=== PATIENT | female | born 1995 | race Caucasian/White ===

== ENCOUNTER 2018-04-09 18:08 | Inpatient (IN) | payer SELFPAY ==
[~2018-04-09] VITALS: Ht 157.5 cm; Wt 63.0 kg
[2018-04-09] MEDS ORDERED: LIDOCAINE 1% 10 ML VIAL INJ ONE (19:00)
[2018-04-09] MEDS ORDERED: PERTUSS(ACELL),DIPH,TET VAC/PF 0.5 ML VIAL IM ONE (19:30)
[2018-04-09 19:50] LABS: BASOPHILS % (AUTO) 0.5 % (0.0-2.0); EOSINOPHILS % (AUTO) 5.1 % (1.0-6.0); HEMOGLOBIN 12.5 g/dL (12.0-16.0); LYMPHOCYTES # (AUTO) 1.4 K/uL (1.0-4.8); LYMPHOCYTES % (AUTO) 24.3 % (22.0-44.0); MEAN CORPUSCULAR HEMOGLOBIN 29.6 pg (26.0-34.0); MEAN CORPUSCULAR HGB CONC 33.9 G/dL (31.0-37.0); MEAN CORPUSCULAR VOLUME 88 fL (80-100); MONOCYTES # (AUTO) 0.3 K/uL (0.1-1.0); MONOCYTES % (AUTO) 5.1 % (2.0-9.0); NEUTROPHILS # (AUTO) 3.6 K/uL (1.8-7.7); PLATELET COUNT (AUTO) 192 K/uL (150-450); RED BLOOD CELL COUNT(AUTO) 4.23 MIL/uL (4.00-5.20); RED CELL DISTRIBUTION WIDTH 13.8 % (11.5-14.5)
[2018-04-09 19:58] LABS: ANION GAP 7 mmol/L (8-16); CALCIUM, TOTAL 8.2 mg/dL (8.8-10.5); CARBON DIOXIDE 27 mmol/L (22-29); CHLORIDE 105 mmol/L (98-107); CREATININE 0.67 mg/dL (0.60-1.30); GLOMERULAR FILTR. RATE CALC > 60 mL/min (>60); GLUCOSE,RANDOM 93 mg/dL (70-110); POTASSIUM 3.8 mmol/L (3.5-5.1); SODIUM SERUM 139 mmol/L (136-145); UREA NITROGEN, BLOOD 14 mg/dL (7-18)
[2018-04-09 20:10] LABS: ALANINE AMINOTRANSFERASE 19 U/L (12-78); ALBUMIN 3.9 g/dL (3.4-5.0); ALKALINE PHOSPHATASE 104 U/L (46-116); ASPARTATE AMINOTRANSFERASE 21 U/L (15-37); BILIRUBIN,TOTAL 0.5 mg/dL (0.1-1.0); HCG,QUANTITATIVE < 1 mIU/mL (0-6); TOTAL PROTEIN, SERUM 7.2 g/dL (6.4-8.2)
[2018-04-09 20:11] LABS: ACETAMINOPHEN < 2 mcg/mL (10-30)
[2018-04-09 20:27] LABS: SALICYLATE < 2.8 mg/dL (2.8-20.0)
[2018-04-09] MEDS ORDERED: LORazepam 2 MG TABLET PO PRN (20:30)
[2018-04-09] MEDS ORDERED: HALOPERIDOL 5 MG TABLET PO PRN (20:30)
[2018-04-09] MEDS ORDERED: ZOLPIDEM TARTRATE 10 MG TABLET PO PRN (20:30)
[2018-04-09 21:17] LABS: CHOL/HDL RATIO 2.2 (3.9-5.7); CHOLESTEROL 124 mg/dL (131-200); FREE T4 (FREE THYROXINE) 0.84 ng/dL (0.76-1.46); HDL CHOLESTEROL 57 mg/dL (40-60); LDL CHOL (CALC.) 63 mg/dL (0-130); THYROID STIMULATING HORMONE 2.08 uIU/mL (0.36-3.74); TRIGLYCERIDES 20 mg/dL (15-150)
[2018-04-09 23:30] VITALS: BP 102/58
[2018-04-10 07:13] LABS: AMPHET/METH SCREEN,URINE NEGATIVE (NEGATIVE); BARBITURATE SCREEN, URINE NEGATIVE (NEGATIVE); BENZODIAZEPINES SCREEN,URINE NEGATIVE (NEGATIVE); CANNABINOID SCREEN,URINE NEGATIVE (NEGATIVE); COCAINE SCREEN,URINE NEGATIVE (NEGATIVE); METHADONE SCREEN, URINE NEGATIVE (NEGATIVE); OPIATE SCREEN,URINE NEGATIVE (NEGATIVE)
[2018-04-10 07:14] LABS: PHENCYCLIDINE SCREEN,URINE NEGATIVE (NEGATIVE)
[2018-04-10 07:34] LABS: APPEARANCE,URINE CLOUDY (CLEAR); BILIRUBIN,URINE NEGATIVE (NEGATIVE); GLUCOSE, URINE (UA) NEGATIVE (NEGATIVE); KETONES,URINE TRACE mg/dL (NEGATIVE); LEUKOCYTE ESTERASE ,URINE NEGATIVE (NEGATIVE); NITRATE,URINE NEGATIVE (NEGATIVE); OCCULT BLOOD,URINE LARGE (NEGATIVE); PH,URINE 7.5 (5.0-8.0); PROTEIN,URINE TRACE (NEGATIVE)
[2018-04-10 07:44] LABS: BACTERIA,URINE Few /HPF (None Seen); SQUAMOUS EPITHELIAL CELL,UR Moderate /LPF (None Seen)
[2018-04-10 08:05] VITALS: BP 108/68
[2018-04-10] MEDS: FLUoxetine HCL 20 MG CAPSULE PO SCH (11:54)
[2018-04-10 17:00] VITALS: BP 103/52
[2018-04-11 02:28] VITALS: BP 125/66
[2018-04-11] MEDS: FLUoxetine HCL 20 MG CAPSULE PO SCH (10:19)
[2018-04-11 10:36] VITALS: BP 103/65
[2018-04-11] MEDS ORDERED: FLUO-191 PO (12:42)
== END 2018-04-11 14:45 | disposition home or self-care (01) | DRG 885 ==
LOC: EMS 18:09 → 3EI 20:32
PROVIDERS: ADMIT Psychiatry & Neurology Child & Adolescent Psychiatry; ATTEND Psychiatry & Neurology Child & Adolescent Psychiatry
DX: F33.2 Major depressive disorder, recurrent severe without psychotic features (principal); F41.9 Anxiety disorder, unspecified; G47.00 Insomnia, unspecified; Z91.5 Personal history of self-harm
CPT/HCPCS: 12002; 13120; 83036; 84439; 84443; 90471; 90715; G0480; G0481; J3490